=== PATIENT | female | born 1990 | race Caucasian/White ===

== ENCOUNTER 2016-07-09 18:04 | Emergency (ER) | payer SELFPAY ==
--- NOTE | 2016-07-09 23:12 | DIAGNOSTIC IMAGING REPORT ---
PROCEDURE: XR ELBOW 3 OR 4 VIEWS - RIGHT INDICATION: PAIN IN JOINT TECHNIQUE: Four views of the right elbow. COMPARISON: None. FINDINGS: Normal mineralization. No fractures. Normal osseous alignment. No joint effusion. No suspicious soft-tissue calcification or radiodense foreign bodies. The soft tissue density accentuated over the proximal forearm. No soft tissue gas. IMPRESSION: 1. Intact right elbow. 2. No evidence of radiodense foreign bodies or soft tissue gas.
--- NOTE | 2016-07-09 23:18 | DIAGNOSTIC IMAGING REPORT ---
PROCEDURE: US VENOUS - RIGHT EXT INDICATION: SWELLING TECHNIQUE: Duplex sonography of the deep venous system in the right upper extremity was performed. Compression and augmentation techniques were used. COMPARISON: None. FINDINGS: Irregular marginated, heterogeneous, partially encapsulated mass is present just below the skin surface at, and just above the crease of the antecubital fossa. It measures 3.7 x 3.1 x 3.8 cm and displaces the underlying muscle. Centrally there is fluid motion within this mass. It is immediately adjacent to the cephalic vein at the antecubital fossa. The cephalic vein for short segment proximal to this mass demonstrates partial compressibility and a nonocclusive filling defect. Cephalic vein in the proximal and mid upper arm is patent. Ulnar and radial arteries at the wrist are patent. More proximally, veins are not visible secondary to excessive soft tissue swelling. Internal jugular vein, subclavian, axillary, brachial, and basilic veins are normally compressible and demonstrate normal color Doppler flow and phasicity. IMPRESSION: 1. There is a short segment of partially occlusive clot in the cephalic vein at the, and just proximal to the antecubital fossa. 2. Findings of early abscess in the antecubital fossa adjacent to the partially occluded cephalic vein. 3. No evidence of thrombus in the deep veins of the upper arm. 4. Discussed with Edith Gallagher in the emergency room.
--- NOTE | 2016-07-09 23:32 | ED NURSING NOTES ---
Clinical Report - [facility] [place] [address] 07/09/2016 18:06 Patient: SUSAN LOPEZ TRIAGE Acuity: LEVEL 4. Chief Complaint: RIGHT UPPER EXTREMITY PAIN, SWELLING, REDNESS and NUMBNESS. Alert. No acute distress. --18:38 Salomón Devries R.N. Weight: 104.3 kg stated. Height/Length: 71 inches Per Patient. BMI: 32.1. --18:31 Salomón Devries R.N. Medications None. --18:35 Salomón Devries R.N. Allergies No Known Drug Allergy. --18:35 Salomón Devries R.N. History Arrived by private vehicle. Historian: patient. Accompanied by friend. This occurred at an unknown time. Provoking / relieving factors: relieved by rest and positioning. She has had swelling. She has had fever (unknown; Pt reports being "hot then cold"). Treatment DETAIL ASSEMBLER: Ice. PAST MEDICAL HX: No history of diabetes mellitus or hypertension. No history of infections. Tetanus status: up-to-date. Immunizations: up-to-date. Last normal menstrual period- Jun 28. Denies current . SOCIAL HX: Heavy tobacco smoker. History of drug use: heroin. (last use 7-8 days ago). No alcohol use. No infectious disease exposure. FALL RISK ASSESSMENT: Fall risk assessment completed. No fall risk identified. NUTRITIONAL RISK ASSESSMENT: The nutritional risk assessment revealed no deficiencies. FUNCTIONAL ASSESSMENT: Functional assessment: no impairments noted. LEARNING NEEDS ASSESSMENT: The learning needs assessment revealed no barriers. SKIN INTEGRITY ASSESSMENT: Skin integrity risk assessment completed. No skin integrity risk identified. --18:38 Salomón Devries R.N. PROBLEMS: Abscess. --18:36 Salomón Devries R.N. Interventions ID band on patient. --18:38 Salomón Devries R.N. PHYSICAL ASSESSMENT Ambulatory to room. GENERAL / NEURO / PSYCH: Oriented X 4. Alert. Appears in no acute distress. EXTREMITIES: Medium area of erythema to right forearm. Increased warmth to right forearm. Right forearm: tenderness, swelling and erythema of the proximal forearm. SKIN: Skin intact. Skin is warm. --18:39 Salomón Devries R.N. NURSING PROGRESS NOTES The plan of care for this patient has been created. Extremity elevated. Patient gowned. Two patient identifiers checked. Call light placed in reach. Bed placed in lowest position. Patient ready for evaluation- chart flagged and ED physician notified. --18:39 Salomón Devries R.N. ( Pt is in some distress r/t pain to her RUE. She is resting, R arm elevated on a pillow. Outlined erythema to R forearm with surgical marker.). --18:43 Salomón Devries R.N. ( Pt in room, updated her on reason for wait. Pt is stable, condition unchanged, VSS. Awaiting Physician Eval.). --19:24 Salomón Devries R.N. ( PA in to assess Pt. Discussed POC. Orders placed.). --19:49 Salomón Devries R.N. 19:55 07/09/2016 Percocet (Oxycodone-Acetaminophen) PO 5/325 mg Tablets 1 tab given. Allergies verified, confirmed 5 rights and sedative warning given to the patient. --19:55 Salomón Devries R.N. 19:52 07/09/16. BP: 99/61. HR: 85. RR: 16. O2 saturation: 95% on room air. Pain level now: 02/20. --19:55 Salomón Devries R.N. 20:55 07/09/2016 Percocet PO Response: no adverse reaction symptoms are the same. --20:55 Salomón Devries R.N. ( US at Pt's bedside completing ordered imaging.). --21:22 Salomón Devries R.N. 20:30 07/09/16. BP: 106/61. HR: 88. RR: 16. O2 saturation: 95% on room air. Pain level now: 02/20. --21:48 Salomón Devries R.N. Reassessment after medication administered. She is calm and has had no adverse reaction. Overall patient status is the same- she states feels the same. GENERAL / NEURO / PSYCH: The patient reports pain that is located in the right forearm is still present. The patient reports numbness. Alert. Appears in pain. RESPIRATORY: No respiratory distress. SKIN: Skin is warm. --21:54 Salomón Devries R.N. ( US completed, Pt resting in her room, still in pain, [facility].). --22:00 Salomón Devries R.N. 22:28 07/09/2016 Site #1 started via IV in the left hand with an 22g angiocath, with aseptic technique; two attempts. Blood drawn: rainbow set. Labeled in the presence of the patient. Saline lock flushed with 10 mL saline. --22:28 Salomón Devries R.N. <<STRICKEN ENTRY-- 22:29 07/09/2016 Started 2 gm of Vancomycin IVPB in bag #1 200 mL; at 200 mL/hr via site #1 via IV pump. Allergies verified and confirmed 5 rights. IV patency established. IV site checked: no pain, redness, or swelling. IV flushed thoroughly pre- and post-medication administration. --22:29 Salomón Devries R.N. --END STRIKE>> Change to Details. PA ordered 2 G Vanco but changed it to 1G Vanco. Pt received 1G/200 MLS of Vanco IV. --23:33 Salomón Devries R.N. 22:43 Portable X-ray complete. --22:43 McQuoid, Ondina, ER Tech1 Checked patient name and birthdate: patient confirmed. Blood samples drawn from the left antecubital space with 23g butterfly by nurse per protocol ; labeled in presence of the patient and sent to lab: rainbow set. --22:47 Salomón Devries R.N. I & D: Incision and Drainage of abscess performed by PA. Assisted by one nurse. The abscess is located on the right forearm. Preparation: Incision and Drainage tray set up with 2% lidocaine. Procedure; a moderate amount of pus was drained. Cavity was packed with gauze. Sample obtained for cultures. A dressing was applied. Post-procedure: she was stable, no complications, bleeding controlled and dressing intact. Estimated blood loss: < 5 mls. Total time of assist / procedure: 15 minutes. ( Pt tolerated well. No complications. Dressing C/D/I. CMS intact.). --23:18 Salomón Devries R.N. 22:29 07/09/2016 Started 1 gm of Vancomycin IVPB in bag #1 200 mL; at 200 mL/hr via site #1 via IV pump. Allergies verified and confirmed 5 rights. IV patency established. IV site checked: no pain, redness, or swelling. IV flushed thoroughly pre- and post-medication administration. --23:33 Salomón Devries R.N. 23:27 07/09/2016 Percocet (Oxycodone-Acetaminophen) PO 5/325 mg Tablets 1 tab given. Allergies verified, confirmed 5 rights and sedative warning given to the patient and patient's merchandise handler. --23:27 Salomón Devries R.N. 23:34 07/09/2016 Vancomycin IVPB Discontinued: bag #1 infused upon discharge. Total amount infused: 200 mL. IV patency established. IV site checked: no pain, redness, or swelling. IV flushed thoroughly. --23:34 Salomón Devries R.N. 23:50 07/09/16. BP: deferred. HR: deferred. RR: 16. O2 saturation: deferred. Temp: deferred. Pain level now: 07/21. --23:55 Annabelle Carrion R.N. DISPOSITION / DISCHARGE 23:30 07/09/16. BP: 97/65. HR: 86. RR: 16. O2 saturation: 96% on room air. Temp: 98 F. Pain level now: 02/20. --23:32 Salomón Devries R.N. 23:53 07/09/2016 Site #1 removed upon discharge. Manual pressure and bandaid applied. --23:53 Annabelle Carrion R.N. Departure time: 2253 PM. Condition at departure: improved and stable. The goals identified in the patient's plan of care were met. No learning barriers present. Discharge instructions provided and reviewed with the patient. Reviewed medication(s) side effects, precautions, dosing and course information. Prescription(s) given to the patient. Patient verbalized understanding. Written instructions provided in Dominican. ( Pt understands the importance of returning tomorrow for wound change.). The patient was discharged by the physician assistant activities director. She was discharged home and accompanied by family. She left the Emergency Department ambulatory and via private vehicle. Family member driving. FALL RISK ASSESSMENT: Fall risk assessment completed. No fall risk identified. --23:57 Annabelle Carrion R.N. Locked/Released at 07/09/2016 23:57 by Annabelle Carrion R.N.
--- NOTE | 2016-07-09 23:32 | ED CLINICAL REPORT ---
Clinical Report - Physicians/Mid Levels [facility] [address] [place] [address] 07/09/2016 18:06 Patient: SUSAN DIAMOND Time Seen: 19:20; initial patient contact. Arrived- By private vehicle. Historian- patient. HISTORY OF PRESENT ILLNESS Chief Complaint: (abscess right antecubital region from heroin injection). This started 3 days ago; pt states she last injected 7-8 days ago, and 3 days ago began having pain and swelling and redness in her right elbow/forearm, with tightness to the forearm. no drugs used since. no fever, chills. It is described as severely painful. It has been located on the right elbow and forearm. A cause has been identified. Similar symptoms previously: Several times (years ago). Recent medical care: Not recently seen/assessed. REVIEW OF SYSTEMS No fever or enlarged lymph nodes. She has had moderate joint pain with erythema, involving the right elbow. All systems otherwise negative, except as recorded above. PAST HISTORY See nurses notes. Tetanus immunization status is up-to-date. Problems: Abscess. Medications: None. Allergies: No Known Drug Allergy. SOCIAL HISTORY Smoker- current status unknown (cigarette). History of occasional drug use: heroin. 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 Recently used drugs days ago. FAMILY HISTORY Negative. ADDITIONAL NOTES The nursing notes have been reviewed with agreement regarding the chief complaint, HPI, ROS, PMH and patient medications and allergies. PHYSICAL EXAM Vital Signs: 07/09/2016 20:30 BP: 106/61. HR: 88. RR: 16. O2 saturation: 95%. Pain level now: 02/20. 07/09/2016 19:52 BP: 99/61. HR: 85. RR: 16. O2 saturation: 95%. Pain level now: 02/20. Have been reviewed as normal. Appearance: Alert. Oriented X3. No acute distress. Anxious. Eyes: Pupils equal, round and reactive to light. ENT: Ears normal. CVS: Normal heart rate and rhythm. Heart sounds normal. Respiratory: No respiratory distress. Breath sounds normal. Skin: Skin warm and dry. Normal skin turgor. Medium area of erythema with tenderness, warmth and swelling to right forearm. Single small tender indurated area with fluctuance to right elbow. Large area of cellulitis with tenderness, erythema and warmth to right forearm. Single medium abscess with fluctuance and cellulitis to right elbow and right forearm (2 cm). No drainage. Neuro: Oriented X 3. LABS, X-RAYS, AND EKG X-Rays: X-rays are normal except as noted. Right elbow negative. The X-rays were independently viewed by me and interpreted by the radiologist. Duplex Ultrasound: Right upper extremity study. Abnormal results. Name: Susan Diamond : 1990 MR#: [id number] Ordering Provider: BHANU KAY Exam(s): US VENOUS - RIGHT EXT Date of Exam: 07/09/2016 __ PROCEDURE: US VENOUS - RIGHT EXT INDICATION: SWELLING TECHNIQUE: Duplex sonography of the deep venous system in the right upper extremity was performed. Compression and augmentation techniques were used. COMPARISON: None. FINDINGS: Irregular marginated, heterogeneous, partially encapsulated mass is present just below the skin surface at, and just above the crease of the antecubital fossa. It measures 3.7 x 3.1 x 3.8 cm and displaces the underlying muscle. Centrally there is fluid motion within this mass. It is immediately adjacent to the cephalic vein at the antecubital fossa. The cephalic vein for short segment proximal to this mass demonstrates partial compressibility and a nonocclusive filling defect. Cephalic vein in the proximal and mid upper arm is patent. Ulnar and radial arteries at the wrist are patent. More proximally, veins are not visible secondary to excessive soft tissue swelling. Internal jugular vein, subclavian, axillary, brachial, and basilic veins are normally compressible and demonstrate normal color Doppler flow and phasicity. IMPRESSION: 1. There is a short segment of partially occlusive clot in the cephalic vein at the, and just proximal to the antecubital fossa. 2. Findings of early abscess in the antecubital fossa adjacent to the partially occluded cephalic vein. 3. No evidence of thrombus in the deep veins of the upper arm. 4. Discussed with Bhanu Kay in the emergency room. Electronically Final signed by:Daly Chapa MD 07/09/2016 11:18:58 PM. The exam was performed by a patient service technician pst. The study was independently viewed by me, interpreted by the radiologist and discussed with the radiologist. Laboratory Tests: CBC w Diff: (CRESENCIO: 07/09/2016 22:41) ( MsgRcvd 07/09/2016 23:14) IP Test Result Flag Units (Reference) WHITE BLOOD COUNT 14.6 H K/uL (4.5-11.5) RED BLOOD COUNT 3.80 L M/uL (4.00-5.20) HEMOGLOBIN 11.0 L gm/dL (12.0-16.0) HEMATOCRIT 36.1 % (36.0-46.0) MEAN CELL VOLUME 95 fL (80-100) MEAN CORPUSCULAR HGB 29 pg (26-34) MEAN CORPUSCULAR HGB CONC 31 g/dL (31-37) RED CELL DISTRIBUTION WIDTH 14.6 % (11.6-14.8) . PROGRESS AND PROCEDURES Incision & Drainage of Abscess: Time: 2305. Time-out completed immediately before the procedure. See nurses note. Verified: identity of patient; procedure; side and site of procedure (site marked); position of patient; agreement on the procedure to be done; availability of diagnostic and imaging studies; the need to administer antibiotics or fluids for irrigation; consent was reviewed. The abscess is located in the right elbow and forearm. The risks of the procedure, benefits and alternatives were explained. Local anesthesia provided using 2% lidocaine with bicarb. Ultrasound utilized to confirm presence and determine location of abscess. The abscess was incised with a #11 surgical blade. A moderate amount of pus was drained. Cavity was irrigated with saline and packed with gauze. Sample obtained for cultures. A dressing was applied. Estimated blood loss: 1 mL. Course of Care: The plan of care for this patient has been created. Extremity elevated. Patient gowned. Two patient identifiers checked. Call light placed in reach. Bed placed in lowest position. Patient ready for evaluation- chart flagged and ED physician notified. --18:39 Salomón Devries R.N. ( Pt is in some distress r/t pain to her RUE. She is resting, R arm elevated on a pillow. Outlined erythema to R forearm with surgical marker.). --18:43 Salomón Devries R.N. ( Pt in room, updated her on reason for wait. Pt is stable, condition unchanged, VSS. Awaiting Physician May.). --19:24 Salomón Devries R.N. ( PA in to assess Pt. Discussed POC. Orders placed.). --19:49 Salomón Devries R.N. 19:55 07/09/2016 Percocet (Oxycodone-Acetaminophen) PO 5/325 mg Tablets 1 tab given. Allergies verified, confirmed 5 rights and sedative warning given to the patient. --19:55 Salomón Devries R.N. 19:52 07/09/16. BP: 99/61. HR: 85. RR: 16. O2 saturation: 95% on room air. Pain level now: 02/20. --19:55 Salomón Devries R.N. 20:55 07/09/2016 Percocet PO Response: no adverse reaction symptoms are the same. --20:55 Salomón Devries R.N. ( US at Pt's bedside completing ordered imaging.). --21:22 Salomón Devries R.N. 20:30 07/09/16. BP: 106/61. HR: 88. RR: 16. O2 saturation: 95% on room air. Pain level now: 02/20. --21:48 Salomón Devries R.N. Reassessment after medication administered. She is calm and has had no adverse reaction. Overall patient status is the same- she states feels the same. GENERAL / NEURO / PSYCH: The patient reports pain that is located in the right forearm is still present. The patient reports numbness. Alert. Appears in pain. RESPIRATORY: No respiratory distress. SKIN: Skin is warm. --21:54 Salomón Devries R.N. ( US completed, Pt resting in her room, still in pain, [facility].). --22:00 Salomón Devries R.N. 22:28 07/09/2016 Site #1 started via IV in the left hand with an 22g angiocath, with aseptic technique; two attempts. Blood drawn: rainbow set. Labeled in the presence of the patient. Saline lock flushed with 10 mL saline. --22:28 Salomón Devries R.N. 22:29 07/09/2016 Started 2 gm of Vancomycin IVPB in bag #1 200 mL; at 200 mL/hr via site #1 via IV pump. Allergies verified and confirmed 5 rights. IV patency established. IV site checked: no pain, redness, or swelling. IV flushed thoroughly pre- and post-medication administration. --22:29 Salomón Devries R.N. 22:43 Portable X-ray complete. --22:43 McQuoid, Ondina, ER Tech1 Checked patient name and birthdate: patient confirmed. Blood samples drawn from the left antecubital space with 23g butterfly by nurse per protocol ; labeled in presence of the patient and sent to lab: rainbow set. --22:47 Salomón Devries R.N. I & D: Incision and Drainage of abscess performed by PA. Assisted by one nurse. The abscess is located on the right forearm. Preparation: Incision and Drainage tray set up with 2% lidocaine. Procedure; a moderate amount of pus was drained. Cavity was packed with gauze. Sample obtained for cultures. A dressing was applied. Post-procedure: she was stable, no complications, bleeding controlled and dressing intact. Estimated blood loss: < 5 mls. Total time of assist / procedure: 15 minutes. ( Pt tolerated well. No complications. Dressing C/D/I. CMS intact.). --23:18 Salomón Devries R.N. Patient is stable. Physical exam findings are improved. Symptoms much better. CLINICAL IMPRESSION Single deep abscess to the right upper extremity with incision and drainage. Substance abuse problems: abuse of opiates. venous thrombosis of the cephalic vein right upper extremity. INSTRUCTIONS Apply dry heat for 15 minutes five times a day for three days until better. Don't use while asleep and don't use high setting on heating pad. Rest. Do not work for two days until better. No dietary restrictions. Do not smoke. No alcohol. (you need to be seen in the ER tomorrow for wound recheck and have the packing removed.). Warnings: CONTROLLED SUBSTANCE WARNINGS. GENERAL WARNINGS: Return or contact your physician immediately if your condition worsens or changes unexpectedly, if not improving as expected, or if other problems arise. Prescription Medications: Bactrim DS 800 mg / 160 mg: take 1 tablet orally every 12 hours for 10 days. No refill. Substitution is permissible. Clindamycin 300 mg: take 1 capsule orally every 8 hours for 10 days. No refill. Oxycodone/APAP 5 mg/325 mg: take 1 tablet orally every 6 hours as needed for pain. Dispense five (5). No refill. Follow-up: Call the emergency department for results of cultures. Return to the emergency department tomorrow for wound check and packing removal. Understanding of the discharge instructions verbalized by patient. (Electronically signed by Bhanu Kay PA-C 07/10/2016 0:34)
--- NOTE | 2016-07-09 23:32 | ED ORDER SUMMARY ---
..... Patient: SUSAN LOPEZ OrderSheet [facility] VisitID: [id number] [address] [place] [address] 26y, F Registration Date/Time: 07/09/2016 ORDER SHEET Weight: 104.3 kg (stated) Allergies: No Known Drug Allergy GENERAL ORDERS: US Venous Right (right upper extremity) Urgent (20:50 07/09/2016 ABlanchette PA-C) (Ack 20:51 Melody) (21:11 MCook R.N.) Elbow 3 or 4V Right (r/o nec fasciitis, abscess with superficial clot) Urgent (22:07 07/09/2016 ABlanchette PA-C) (Ack 22:10 Melody) (22:43 AMcQuoid ER Tech1) CBC w Diff Urgent (22:07 07/09/2016 ABlanchette PA-C) (Ack 22:10 Melody) (22:44 MCook R.N.) MEDICATION ORDERS: Percocet PO 5/325 mg (NOW) (19:54 07/09/2016 MCook R.N. verbal order read back to ABlanchette PA-C) (19:55 MCook R.N.) IV FLUIDS: Vancomycin IV 1.5 gm/500 mL (NOW) (22:06 07/09/2016 ABlanchette PA-C) (Cancelled: Duplicate Order22:13 ABlanchette PA-C) IV Saline Lock (22:07 07/09/2016 ABlanchette PA-C) (22:28 MCook R.N.) Vancomycin IV 2 gm/500 mL (NOW) (22:13 07/09/2016 ABlanchette PA-C) (22:29 MCook R.N.) ORDER SHEET NOTES: [Electronically signed by Annabelle Carrion R.N. (23:57 07/09/2016)] [Electronically signed by Edith Gallagher PA-C (00:34 07/10/2016)] [Electronically locked/signed by Annabelle Carrion R.N. (23:57 07/09/2016)]
--- NOTE | 2016-07-09 23:32 | ED NURSING NOTES ---
Clinical Report - Nurses [facility] [place] [address] 07/09/2016 18:06 Patient: SUSAN LOPEZ TRIAGE Acuity: LEVEL 4. Chief Complaint: RIGHT UPPER EXTREMITY PAIN, SWELLING, REDNESS and NUMBNESS. Alert. No acute distress. --18:38 Salomón Devries R.N. Weight: 104.3 kg stated. Height/Length: 71 inches Per Patient. BMI: 32.1. --18:31 Salomón Devries R.N. Medications None. --18:35 Salomón Devries R.N. Allergies No Known Drug Allergy. --18:35 Salomón Devries R.N. History Arrived by private vehicle. Historian: patient. Accompanied by friend. This occurred at an unknown time. Provoking / relieving factors: relieved by rest and positioning. She has had swelling. She has had fever (unknown; Pt reports being "hot then cold"). Treatment FARM HAND: Ice. PAST MEDICAL HX: No history of diabetes mellitus or hypertension. No history of infections. Tetanus status: up-to-date. Immunizations: up-to-date. Last normal menstrual period- Jun 28. Denies current . SOCIAL HX: Heavy tobacco smoker. History of drug use: heroin. (last use 7-8 days ago). No alcohol use. No infectious disease exposure. FALL RISK ASSESSMENT: Fall risk assessment completed. No fall risk identified. NUTRITIONAL RISK ASSESSMENT: The nutritional risk assessment revealed no deficiencies. FUNCTIONAL ASSESSMENT: Functional assessment: no impairments noted. LEARNING NEEDS ASSESSMENT: The learning needs assessment revealed no barriers. SKIN INTEGRITY ASSESSMENT: Skin integrity risk assessment completed. No skin integrity risk identified. --18:38 Salomón Devries R.N. PROBLEMS: Abscess. --18:36 Saolmón Devries R.N. Interventions ID band on patient. --18:38 Salomón Devries R.N. PHYSICAL ASSESSMENT Ambulatory to room. GENERAL / NEURO / PSYCH: Oriented X 4. Alert. Appears in no acute distress. EXTREMITIES: Medium area of erythema to right forearm. Increased warmth to right forearm. Right forearm: tenderness, swelling and erythema of the proximal forearm. SKIN: Skin intact. Skin is warm. --18:39 Salomón Devries R.N. NURSING PROGRESS NOTES The plan of care for this patient has been created. Extremity elevated. Patient gowned. Two patient identifiers checked. Call light placed in reach. Bed placed in lowest position. Patient ready for evaluation- chart flagged and ED physician notified. --18:39 Salomón Dervies R.N. ( Pt is in some distress r/t pain to her RUE. She is resting, R arm elevated on a pillow. Outlined erythema to R forearm with surgical marker.). --18:43 Salomón Devries R.N. ( Pt in room, updated her on reason for wait. Pt is stable, condition unchanged, VSS. Awaiting Physician Eval.). --19:24 Salomón Devries R.N. ( PA in to assess Pt. Discussed POC. Orders placed.). --19:49 Salomón Devries R.N. 19:55 07/09/2016 Percocet (Oxycodone-Acetaminophen) PO 5/325 mg Tablets 1 tab given. Allergies verified, confirmed 5 rights and sedative warning given to the patient. --19:55 Salomón Devries R.N. 19:52 07/09/16. BP: 99/61. HR: 85. RR: 16. O2 saturation: 95% on room air. Pain level now: 02/20. --19:55 Salomón Devries R.N. 20:55 07/09/2016 Percocet PO Response: no adverse reaction symptoms are the same. --20:55 Salomón Devries R.N. ( US at Pt's bedside completing ordered imaging.). --21:22 Salomón Devries R.N. 20:30 07/09/16. BP: 106/61. HR: 88. RR: 16. O2 saturation: 95% on room air. Pain level now: 02/20. --21:48 Salomón Devries R.N. Reassessment after medication administered. She is calm and has had no adverse reaction. Overall patient status is the same- she states feels the same. GENERAL / NEURO / PSYCH: The patient reports pain that is located in the right forearm is still present. The patient reports numbness. Alert. Appears in pain. RESPIRATORY: No respiratory distress. SKIN: Skin is warm. --21:54 Salomón Devries R.N. ( US completed, Pt resting in her room, still in pain, [facility].). --22:00 Salomón Devries R.N. 22:28 07/09/2016 Site #1 started via IV in the left hand with an 22g angiocath, with aseptic technique; two attempts. Blood drawn: rainbow set. Labeled in the presence of the patient. Saline lock flushed with 10 mL saline. --22:28 Salomón Devries R.N. <<STRICKEN ENTRY-- 22:29 07/09/2016 Started 2 gm of Vancomycin IVPB in bag #1 200 mL; at 200 mL/hr via site #1 via IV pump. Allergies verified and confirmed 5 rights. IV patency established. IV site checked: no pain, redness, or swelling. IV flushed thoroughly pre- and post-medication administration. --22:29 Salomón Devries R.N. --END STRIKE>> Change to Details. PA ordered 2 G Vanco but changed it to 1G Vanco. Pt received 1G/200 MLS of Vanco IV. --23:33 Salomón Devries R.N. 22:43 Portable X-ray complete. --22:43 McQuoid, [place], ER Tech1 Checked patient name and birthdate: patient confirmed. Blood samples drawn from the left antecubital space with 23g butterfly by nurse per protocol ; labeled in presence of the patient and sent to lab: rainbow set. --22:47 Salomón Devries R.N. I & D: Incision and Drainage of abscess performed by PA. Assisted by one nurse. The abscess is located on the right forearm. Preparation: Incision and Drainage tray set up with 2% lidocaine. Procedure; a moderate amount of pus was drained. Cavity was packed with gauze. Sample obtained for cultures. A dressing was applied. Post-procedure: she was stable, no complications, bleeding controlled and dressing intact. Estimated blood loss: < 5 mls. Total time of assist / procedure: 15 minutes. ( Pt tolerated well. No complications. Dressing C/D/I. CMS intact.). --23:18 Salomón Devries R.N. 22:29 07/09/2016 Started 1 gm of Vancomycin IVPB in bag #1 200 mL; at 200 mL/hr via site #1 via IV pump. Allergies verified and confirmed 5 rights. IV patency established. IV site checked: no pain, redness, or swelling. IV flushed thoroughly pre- and post-medication administration. --23:33 Salomón Devries R.N. 23:27 07/09/2016 Percocet (Oxycodone-Acetaminophen) PO 5/325 mg Tablets 1 tab given. 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 --23:27 Salomón Devries R.N. 23:34 07/09/2016 Vancomycin IVPB Discontinued: bag #1 infused upon discharge. Total amount infused: 200 mL. IV patency established. IV site checked: no pain, redness, or swelling. IV flushed thoroughly. --23:34 Salomón Devries R.N. 23:50 07/09/16. BP: deferred. HR: deferred. RR: 16. O2 saturation: deferred. Temp: deferred. Pain level now: 07/21. --23:55 Annabelle Carrion R.N. DISPOSITION / DISCHARGE 23:30 07/09/16. BP: 97/65. HR: 86. RR: 16. O2 saturation: 96% on room air. Temp: 98 F. Pain level now: 02/20. --23:32 Salomón Devries R.N. 23:53 07/09/2016 Site #1 removed upon discharge. Manual pressure and bandaid applied. --23:53 Annabelle Carrion R.N. Departure time: 2253 PM. Condition at departure: improved and stable. The goals identified in the patient's plan of care were met. No learning barriers present. Discharge instructions provided and reviewed with the patient. Reviewed medication(s) side effects, precautions, dosing and course information. Prescription(s) given to the patient. Patient verbalized understanding. Written instructions provided in Icelandic. ( Pt understands the importance of returning tomorrow for wound change.). The patient was discharged by the physician assistant director of admissions. She was discharged home and accompanied by family. She left the Emergency Department ambulatory and via private vehicle. Family member driving. FALL RISK ASSESSMENT: Fall risk assessment completed. No fall risk identified. --23:57 Annabelle Carrion R.N. Locked/Released at 07/09/2016 23:57 by Annabelle Carrion R.N.
--- NOTE | 2016-07-09 23:32 | ED ORDER SUMMARY ---
..... Patient: SUSAN LOPEZ OrderSheet [facility] VisitID: [id number] [address] [place] [address] 26y, F Registration Date/Time: 07/09/2016 ORDER SHEET Weight: 104.3 kg (stated) Allergies: No Known Drug Allergy GENERAL ORDERS: US Venous Right (right upper extremity) Urgent (20:50 07/09/2016 ABlanchette PA-C) (Ack 20:51 Melody) (21:11 MCook R.N.) Elbow 3 or 4V Right (r/o nec fasciitis, abscess with superficial clot) Urgent (22:07 07/09/2016 ABlanchette PA-C) (Ack 22:10 Melody) (22:43 AMcQuoid ER Tech1) CBC w Diff Urgent (22:07 07/09/2016 ABlanchette PA-C) (Ack 22:10 Melody) (22:44 MCook R.N.) MEDICATION ORDERS: Percocet PO 5/325 mg (NOW) (19:54 07/09/2016 MCook R.N. verbal order read back to ABlanchette PA-C) (19:55 MCook R.N.) IV FLUIDS: Vancomycin IV 1.5 gm/500 mL (NOW) (22:06 07/09/2016 ABlanchette PA-C) (Cancelled: Duplicate Order22:13 ABlanchette PA-C) IV Saline Lock (22:07 07/09/2016 ABlanchette PA-C) (22:28 MCook R.N.) Vancomycin IV 2 gm/500 mL (NOW) (22:13 07/09/2016 ABlanchette PA-C) (22:29 MCook R.N.) ORDER SHEET NOTES: [Electronically signed by Annabelle Carrion R.N. (23:57 07/09/2016)] [Electronically signed by Edith Gallagher PA-C (00:34 07/10/2016)] [Electronically locked/signed by Annabelle Carrion R.N. (23:57 07/09/2016)]
--- NOTE | 2016-07-10 00:35 | ED MED RECONCILIATION SUMMARY ---
Patient: SUSAN LOPEZ Medication Reconciliation Report [facility] VisitID: [id number] [address] [place] [address] 26y, F Registration Date/Time: 07/09/2016 Weight: 104.3 kg Height/Length: 71 in. BMI: 32.1 ALLERGIES: No Known Drug Allergy The patient's Home Medications are listed below: NONE. The source(s) of the original Home Medication information: Not obtained. The following Medications were given to the patient in the Emergency Department: Percocet [PO] PO 1 tab, administered: 07/09/2016 7:55:00 PM Vancomycin [IVPB] IVPB bolus 0, then 1 gm 200 mL/hr, administered: 07/09/2016 10:29:00 PM Percocet [PO] PO 1 tab, administered: 07/09/2016 11:27:00 PM The following Medications were prescribed to the patient: Bactrim DS 800 mg / 160 mg: take 1 tablet orally every 12 hours for 10 days. No refill. Substitution is permissible. -- Edith Gallagher PA-C Clindamycin 300 mg: take 1 capsule orally every 8 hours for 10 days. No refill. -- Edith Gallagher PA-C Oxycodone/APAP 5 mg/325 mg: take 1 tablet orally every 6 hours as needed for pain. Dispense five (5). No refill. -- Edith Gallagher PA-C
--- NOTE | 2016-07-10 00:35 | ED DISCHARGE INSTRUCTIONS ---
Patient: SUSAN LOPEZ General Instructions [facility] VisitID: [id number] [place] [address] 26y, F Registration Date/Time: 07/09/2016 Single deep abscess to the right upper extremity with incision and drainage. Substance abuse problems: abuse of opiates. venous thrombosis of the cephalic vein right upper extremity. INSTRUCTIONS Apply dry heat for 15 minutes five times a day for three days until better. Don't use while asleep and don't use high setting on heating pad. Rest. Do not work for two days until better. No dietary restrictions. Do not smoke. No alcohol. (you need to be seen in the ER tomorrow for wound recheck and have the packing removed.). Warnings: CONTROLLED SUBSTANCE WARNINGS. GENERAL WARNINGS: Return or contact your physician immediately if your condition worsens or changes unexpectedly, if not improving as expected, or if other problems arise. Prescription Medications: Bactrim DS 800 mg / 160 mg: take 1 tablet orally every 12 hours for 10 days. No refill. Substitution is permissible. Clindamycin 300 mg: take 1 capsule orally every 8 hours for 10 days. No refill. Oxycodone/APAP 5 mg/325 mg: take 1 tablet orally every 6 hours as needed for pain. Dispense five (5). No refill. Follow-up: Call the emergency department for results of cultures. Return to the emergency department tomorrow for wound check and packing removal. Understanding of the discharge instructions verbalized by patient. ADDITIONAL INFORMATION Abscess [Incision & Drainage] An abscess (sometimes called a boil) occurs when bacteria get trapped under the skin and begin to grow. Pus forms inside the abscess as the body responds to the bacteria. An abscess can occur with an insect bite, ingrown hair, blocked oil gland, pimple, cyst, or puncture wound. Treatment of your abscess has required an incision to drain the pus. If the abscess pocket was large, a gauze packing may have been inserted. This will need to be removed and possibly replaced on your next visit. Antibiotics are not required in the treatment of a simple abscess, unless the infection is spreading into the skin around the wound (known as cellulitis). Healing of the wound will take about one to two weeks depending on the size of the abscess. Healthy tissue will grow from the bottom and sides of the opening until it seals over. Home Care: The wound may drain for the first two days. Cover the wound with a clean dry dressing. If the dressing becomes soaked with blood or pus, change it. If a gauze packing was placed inside the abscess cavity, you may be advised to remove it yourself. You may do this in the shower. Once the packing is removed, you should wash the area in the shower or bath 3 to 4 times a day, until the skin opening has closed. If you were prescribed antibiotics, take them as directed until they are all gone. You may use acetaminophen (Tylenol) or ibuprofen (Motrin, Advil) to control pain, unless another pain medicine was prescribed. [ NOTE: If you have liver disease or ever had a stomach ulcer, talk with your doctor before using these medicines.] Follow Up with your doctor as advised by our staff. If a gauze packing was inserted in your wound, it should be removed in 1-2 days. Check your wound every day for the signs of worsening infection listed below. Get Prompt Medical Attention if any of the following occur: Increasing redness or swelling Red streaks in the skin leading away from the wound Increasing local pain or swelling Continued pus draining from the wound two days after treatment Fever of 100.4F (38C) or higher, or as directed by your healthcare provider You have been given the following additional information: Abscess, Incision And Drainage Rest. Do not work for two days until better. (Electronically signed by Edith Gallagher PA-C 07/10/2016 0:34)
--- NOTE | 2016-07-10 00:35 | ED MAR SUMMARY ---
..... Medication Administration Record [facility] [address] [place] [address] Patient: SUSAN LOPEZ Visit ID: [id number] 26y, F Weight: 104.3 kg Height/Length: 71 in BMI: 32.1 ALLERGIES: No Known Drug Allergy Given 19:55 07/09/2016 Salomón Devries R.N. Medication Administered: PERCOCET [PO] (OXYCODONE-ACETAMINOPHEN), Dose: 1 tab 5/325 mg Tablets PO. Medication Ordered: Percocet PO 5/325 mg (NOW). Start 22:29 07/09/2016 Salomón Devries R.N., Stop 23:34 07/09/2016 Salomnó Devries R.N. Medication Administered: VANCOMYCIN [IVPB], Dose: 1 gm IVPB, Rate: 200 mL/hr, Dispensed: 200 mL bag, Site: #1 left hand. Medication Ordered: Vancomycin IV 2 gm/500 mL (NOW). Given 23:27 07/09/2016 Salomón Devries R.N. Medication Administered: PERCOCET [PO] (OXYCODONE-ACETAMINOPHEN), Dose: 1 tab 5/325 mg Tablets PO. Medication Ordered: Percocet PO 5/325 mg (NOW).
--- NOTE | 2016-07-10 00:35 | ED MAR SUMMARY ---
..... Medication Administration Record [facility] [address] [place] [address] Patient: SUSAN LOPEZ Visit ID: [id number] 26y, F Weight: 104.3 kg Height/Length: 71 in BMI: 32.1 ALLERGIES: No Known Drug Allergy Given 19:55 07/09/2016 Salomón Devries R.N. Medication Administered: PERCOCET [PO] (OXYCODONE-ACETAMINOPHEN), Dose: 1 tab 5/325 mg Tablets PO. Medication Ordered: Percocet PO 5/325 mg (NOW). Start 22:29 07/09/2016 Salomón Devries R.N., Stop 23:34 07/09/2016 Salomón Devries R.N. Medication Administered: VANCOMYCIN [IVPB], Dose: 1 gm IVPB, Rate: 200 mL/hr, Dispensed: 200 mL bag, Site: #1 left hand. Medication Ordered: Vancomycin IV 2 gm/500 mL (NOW). Given 23:27 07/09/2016 Salomón Devries R.N. Medication Administered: PERCOCET [PO] (OXYCODONE-ACETAMINOPHEN), Dose: 1 tab 5/325 mg Tablets PO. Medication Ordered: Percocet PO 5/325 mg (NOW).
--- NOTE | 2016-07-10 00:35 | ED MED RECONCILIATION SUMMARY ---
Patient: SUSAN LOPEZ Medication Reconciliation Report [facility] VisitID: [id number] [address] [place] [address] 26y, F Registration Date/Time: 07/09/2016 Weight: 104.3 kg Height/Length: 71 in. BMI: 32.1 ALLERGIES: No Known Drug Allergy The patient's Home Medications are listed below: NONE. The source(s) of the original Home Medication information: Not obtained. The following Medications were given to the patient in the Emergency Department: Percocet [PO] PO 1 tab, administered: 07/09/2016 7:55:00 PM Vancomycin [IVPB] IVPB bolus 0, then 1 gm 200 mL/hr, administered: 07/09/2016 10:29:00 PM Percocet [PO] PO 1 tab, administered: 07/09/2016 11:27:00 PM The following Medications were prescribed to the patient: Bactrim DS 800 mg / 160 mg: take 1 tablet orally every 12 hours for 10 days. No refill. Substitution is permissible. -- Edith Gallagher PA-C Clindamycin 300 mg: take 1 capsule orally every 8 hours for 10 days. No refill. -- Edith Gallagher PA-C Oxycodone/APAP 5 mg/325 mg: take 1 tablet orally every 6 hours as needed for pain. Dispense five (5). No refill. -- Edith Gallagher PA-C
== END 2016-07-09 23:02 | disposition home or self-care (01) ==
LOC: ED SRH 18:04
DX: L02.413 Cutaneous abscess of right upper limb (principal); F11.10 Opioid abuse, uncomplicated; I82.611 Acute embolism and thrombosis of superficial veins of right upper extremity

== ENCOUNTER → 2016-07-10 | Emergency (ER) | payer SELFPAY ==
--- NOTE | 2016-07-10 19:48 | ED NURSING NOTES ---
Clinical Report - Nurses [facility] [address] [place] [address] 07/10/2016 17:31 Patient: SUSAN LOPEZ TRIAGE Triage time 17:41. Acuity: LEVEL 5. Chief Complaint: abcess drain removal. 17:49 07/10/16. Alert. No acute distress. SEPSIS SCREEN: Sepsis Screen. Negative (no infection suspected/documented). --17:49 Juliana Al R.N. 17:41 07/10/16. HR: 85. RR: 16. O2 saturation: 99%. Temp: 98.4 F. Pain level now: 02/20. --17:49 Juliana Al R.N. 17:41 late entry -. --17:57 Juliana Al R.N. 17:55 07/10/16. BP: 102/64. --17:57 Juliana Al R.N. 17:58 07/10/16. --17:58 Juliana Al R.N. Weight: 99.7 kg stated. Height/Length: 71 inches Per Patient. BMI: 30.7. --17:53 Juliana Al R.N. Medications Bactrim Oral. --17:50 Juliana Al R.N. Clindamycin HCl Oral. --17:50 Juliana Al R.N. OxyCODONE HCl Oral. --17:51 Juliana Al R.N. The following entry was struck by Juliana Al R.N., 17:50 (07/10/16) Reason - wrong value. <<STRICKEN ENTRY-- None. --17:45 Juliana Al R.N. --END STRIKE>>. Allergies No Known Drug Allergy. --17:45 Juliana Al R.N. History Historian: patient. It is described as painful. ( pt reports she had an abscess drained yesterday and was told to return today for drain removal.). 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 PAST MEDICAL HX: Immunizations: up-to-date. Last normal menstrual period- Jun 28 2016. Denies current . SOCIAL HX: Heavy tobacco smoker- 1 pack per day. History of drug use. (pt reports past heroin use (8 days ago)). No alcohol use. ABUSE ASSESSMENT: No report of abuse. FALL RISK ASSESSMENT: Fall risk assessment completed. No fall risk identified. NUTRITIONAL RISK ASSESSMENT: The nutritional risk assessment revealed no deficiencies. FUNCTIONAL ASSESSMENT: Functional assessment: no impairments noted. LEARNING NEEDS ASSESSMENT: The learning needs assessment revealed no barriers. SKIN INTEGRITY ASSESSMENT: Skin integrity risk assessment completed. No skin integrity risk identified. --17:49 Juliana Al R.N. Location - right forearm. --17:58 Juliana Al R.N. PROBLEMS: Lifestyle / Substance Problems. Abscess. --17:46 Juliana Al R.N. ADDITIONAL SURGERIES: Tonsillectomy. --17:46 Juliana Al R.N. Interventions ID band on patient. To treatment room. --17:49 Juliana Al R.N. PHYSICAL ASSESSMENT 17:52 07/10/16. SKIN: Skin is warm and dry. Bloody drainage (bloody drainage from yesterday). --17:52 Juliana Al R.N. NURSING PROGRESS NOTES 17:53 07/10/16. Two patient identifiers checked. Call light placed in reach. Bed placed in lowest position. Brakes of bed on. Patient ready for evaluation- chart flagged and notification provided. --17:53 Juliana Al R.N. 19:02 07/10/16. ( I and D set up). --19:02 Andrew Jiang R.N. 19:06 07/10/16. Care transferred and report received (from ARIEL Andrews). --19:06 Yesica Burciaga R.N. 19:25 07/10/16. I & D: Incision and Drainage of abscess performed by ED physician. Assisted by one nurse. The abscess is located on the (right AC fossa). Preparation: Incision and Drainage tray set up with 2% lidocaine. Procedure: skin cleansed with Betadine; a large amount of pus was drained. Cavity was irrigated with saline and packed with gauze. A dressing was applied. Post-procedure: she was stable, no complications, bleeding controlled and dressing intact. --19:49 Yesica Burciaga R.N. DISPOSITION / DISCHARGE 20:05 07/10/16. Condition at departure: improved and stable. The goals identified in the patient's plan of care were met. No learning barriers present. Reviewed medication(s) (continue taking abx). Reviewed referrals (return to ED tomorrow evening for wound check). Patient verbalized understanding. Written instructions provided in Bahraini. The patient was discharged home and unaccompanied at time of discharge. She left the Emergency Department ambulatory and via private vehicle. Patient driving. FALL RISK ASSESSMENT: Fall risk assessment completed. No fall risk identified. --20:05 Yesica Burciaga R.N. 17:55 07/10/16. BP: 102/64. 17:41 07/10/16. HR: 85. RR: 16. O2 saturation: 99%. Temp: 98.4 F. Pain level now: 02/20. --20:05 Yesica Burciaga R.N. Departure time: 20:05 Jul 10 2016. --20:05 Yesica Buricaga R.N. Locked/Released at 07/10/2016 20:05 by Yesica Burciaga R.N.
--- NOTE | 2016-07-10 19:48 | ED CLINICAL REPORT ---
Clinical Report - Physicians/Mid Levels [facility] [address] [place] [address] 07/10/2016 17:31 Patient: SUSAN LOPEZ Time Seen: 17:40. Arrived- By private vehicle. Historian- patient. HISTORY OF PRESENT ILLNESS Treated in emergency department yesterday. Chief Complaint: WOUND and ABSCESS RECHECK. The patient has experienced pain and discharge since the procedure was performed. Previous emergency department treatment: Incision and Drainage of abscess and prescription antibiotic given. REVIEW OF SYSTEMS No chills, fever, sweats, calf pain or chest pain. No cough, difficulty breathing, pedal edema, palpitations or abdominal pain. No constipation, diarrhea, nausea, vomiting or urinary problems. All systems otherwise negative, except as recorded above. PAST HISTORY Problems: Lifestyle / Substance Problems. Abscess. Additional Surgeries: Tonsillectomy. Medications: OxyCODONE HCl Oral. Clindamycin HCl Oral. Bactrim Oral. Allergies: No Known Drug Allergy. SOCIAL HISTORY Current every day heavy tobacco smoker (cigarette)- 1 pack per day. 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 FAMILY HISTORY No significant family medical history. ADDITIONAL NOTES The nursing notes have been reviewed. PHYSICAL EXAM Vital Signs: 07/10/2016 17:41 HR: 85. RR: 16. O2 saturation: 99%. Temp: 98.4 F. Pain level now: 02/20. Have been reviewed. Appearance: Alert. Head: No swelling of head. Eyes: Pupils equal, round and reactive to light. ENT: Pharynx normal. Neck: Painless ROM. CVS: Heart sounds normal. Pulses normal. Respiratory: Breath sounds normal. Chest nontender. Abdomen: Soft and nontender. No organomegaly. Back: ROM normal. Skin: Medium area of cellulitis with tenderness, erythema and warmth to right arm. Heavy purulent drainage present (from her small right antecubital incision that was performed yesterday). Neuro, Vascular and Tendons: Sensation intact. No tendon injury. No vascular compromise. Neuro: No motor deficit. No sensory deficit. PROGRESS AND PROCEDURES Incision & Drainage of Abscess: Time-out completed immediately before the procedure. The abscess is located in the right arm (in the antecubital fossa). The risks of the procedure, benefits and alternatives were explained. Consent was obtained. Anesthesia provided using 2% lidocaine no epi. Skin cleansed with Betadine. The abscess was incised with a #11 surgical blade. A large amount of pus was drained. Cavity was irrigated with saline and packed with gauze. A dressing was applied. ( large amount of pus was noted to be coming from the incision site performed yesterday. I removed a small amount of packing but a large amount of purulent material Draining. Therefore, I explained to the patient that we need to extend the size of the wound and to make it a stellate incision She provided consent for this and I incised and drained the wound and got a large amount of purulent material.). Course of Care: Patient is stable. Patient/family counseled. Old medical records reviewed. Disposition: Discharged. Condition: stable. CLINICAL IMPRESSION Single deep healing abscess to the right upper extremity with incision and drainage. INSTRUCTIONS Protect wound and keep wound area clean. Change dressing twice daily. Warnings: COMPLICATIONS: Complications from this condition include: possible infection. Future problems may include infection, scarring and pain. INFECTION: Watch for signs of infection (increasing heat and redness, pus-like drainage, swelling, or increased pain). Return or see your doctor if these signs occur. It is important to follow up with a physician for further evaluation and treatment. GENERAL WARNINGS: Return or contact your physician immediately if your condition worsens or changes unexpectedly, if not improving as expected, or if other problems arise. Your Current Medications: CONTINUE TAKING THE FOLLOWING MEDICATIONS: Bactrim Oral. Clindamycin HCl Oral. OxyCODONE HCl Oral. Follow-up: Return to the emergency department tomorrow for wound check. Understanding of the discharge instructions verbalized by patient. (Electronically signed by Shivam Santamaria MD 07/11/2016 23:35)
--- NOTE | 2016-07-10 19:48 | ED NURSING NOTES ---
Clinical Report - Nurses [facility] [address] [place] [address] 07/10/2016 17:31 Patient: SUSAN LOPEZ TRIAGE Triage time 17:41. Acuity: LEVEL 5. Chief Complaint: abcess drain removal. 17:49 07/10/16. Alert. No acute distress. SEPSIS SCREEN: Sepsis Screen. Negative (no infection suspected/documented). --17:49 Juliana Al R.N. 17:41 07/10/16. HR: 85. RR: 16. O2 saturation: 99%. Temp: 98.4 F. Pain level now: 02/20. --17:49 Juliana Al R.N. 17:41 late entry -. --17:57 Juliana Al R.N. 17:55 07/10/16. BP: 102/64. --17:57 Juliana Al R.N. 17:58 07/10/16. --17:58 Juliana Al R.N. Weight: 99.7 kg stated. Height/Length: 71 inches Per Patient. BMI: 30.7. --17:53 Juliana Al R.N. Medications Bactrim Oral. --17:50 Juliana Al R.N. Clindamycin HCl Oral. --17:50 Juliana Al R.N. OxyCODONE HCl Oral. --17:51 Juliana Al R.N. The following entry was struck by Juliana Al R.N., 17:50 (07/10/16) Reason - wrong value. <<STRICKEN ENTRY-- None. --17:45 Juliana Al R.N. --END STRIKE>>. Allergies No Known Drug Allergy. --17:45 Juliana Al R.N. History Historian: patient. It is described as painful. ( pt reports she had an abscess drained yesterday and was told to return today for drain removal.). 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 PAST MEDICAL HX: Immunizations: up-to-date. Last normal menstrual period- Jun 28 2016. Denies current . SOCIAL HX: Heavy tobacco smoker- 1 pack per day. History of drug use. (pt reports past heroin use (8 days ago)). No alcohol use. ABUSE ASSESSMENT: No report of abuse. FALL RISK ASSESSMENT: Fall risk assessment completed. No fall risk identified. NUTRITIONAL RISK ASSESSMENT: The nutritional risk assessment revealed no deficiencies. FUNCTIONAL ASSESSMENT: Functional assessment: no impairments noted. LEARNING NEEDS ASSESSMENT: The learning needs assessment revealed no barriers. SKIN INTEGRITY ASSESSMENT: Skin integrity risk assessment completed. No skin integrity risk identified. --17:49 Juliana Al R.N. Location - right forearm. --17:58 Juilana Al R.N. PROBLEMS: Lifestyle / Substance Problems. Abscess. --17:46 Juliana Al R.N. ADDITIONAL SURGERIES: Tonsillectomy. --17:46 Juliana Al R.N. Interventions ID band on patient. To treatment room. --17:49 Juliana Al R.N. PHYSICAL ASSESSMENT 17:52 07/10/16. SKIN: Skin is warm and dry. Bloody drainage (bloody drainage from yesterday). --17:52 Juliana Al R.N. NURSING PROGRESS NOTES 17:53 07/10/16. Two patient identifiers checked. Call light placed in reach. Bed placed in lowest position. Brakes of bed on. Patient ready for evaluation- chart flagged and notification provided. --17:53 Juliana Al R.N. 19:02 07/10/16. ( I and D set up). --19:02 Andrew Jiang R.N. 19:06 07/10/16. Care transferred and report received (from ARIEL Andrews). --19:06 Yesica Burciaga R.N. 19:25 07/10/16. I & D: Incision and Drainage of abscess performed by ED physician. Assisted by one nurse. The abscess is located on the (right AC fossa). Preparation: Incision and Drainage tray set up with 2% lidocaine. Procedure: skin cleansed with Betadine; a large amount of pus was drained. Cavity was irrigated with saline and packed with gauze. A dressing was applied. Post-procedure: she was stable, no complications, bleeding controlled and dressing intact. --19:49 Yesica Burciaga R.N. DISPOSITION / DISCHARGE 20:05 07/10/16. Condition at departure: improved and stable. The goals identified in the patient's plan of care were met. No learning barriers present. Reviewed medication(s) (continue taking abx). Reviewed referrals (return to ED tomorrow evening for wound check). Patient verbalized understanding. Written instructions provided in [place]. The patient was discharged home and unaccompanied at time of discharge. She left the Emergency Department ambulatory and via private vehicle. Patient driving. FALL RISK ASSESSMENT: Fall risk assessment completed. No fall risk identified. --20:05 Yesica Burciaga R.N. 17:55 07/10/16. BP: 102/64. 17:41 07/10/16. HR: 85. RR: 16. O2 saturation: 99%. Temp: 98.4 F. Pain level now: 02/20. --20:05 Yesica Burciaga R.N. Departure time: 20:05 Jul 10 2016. --20:05 Yesica Burciaga R.N. Locked/Released at 07/10/2016 20:05 by Yesica Burciaga R.N.
--- NOTE | 2016-07-11 23:36 | ED MAR SUMMARY ---
..... Medication Administration Record [facility] [address], [place] [id number] Patient: SUSAN LOPEZ Visit ID: [id number] 26y, F Weight: 99.7 kg Height/Length: 71 in BMI: 30.7 ALLERGIES: No Known Drug Allergy
--- NOTE | 2016-07-11 23:36 | ED MAR SUMMARY ---
..... Medication Administration Record [facility] [address] [id number] Patient: SUSAN LOPEZ Visit ID: [id number] 26y, F Weight: 99.7 kg Height/Length: 71 in BMI: 30.7 ALLERGIES: No Known Drug Allergy
--- NOTE | 2016-07-11 23:36 | ED DISCHARGE INSTRUCTIONS ---
Patient: SUSAN LOPEZ General Instructions [facility] VisitID: [id number] [place] [address] 26y, F Registration Date/Time: 07/10/2016 Single deep healing abscess to the right upper extremity with incision and drainage. INSTRUCTIONS Protect wound and keep wound area clean. Change dressing twice daily. Warnings: COMPLICATIONS: Complications from this condition include: possible infection. Future problems may include infection, scarring and pain. INFECTION: Watch for signs of infection (increasing heat and redness, pus-like drainage, swelling, or increased pain). Return or see your doctor if these signs occur. It is important to follow up with a physician for further evaluation and treatment. GENERAL WARNINGS: Return or contact your physician immediately if your condition worsens or changes unexpectedly, if not improving as expected, or if other problems arise. Your Current Medications: CONTINUE TAKING THE FOLLOWING MEDICATIONS: Bactrim Oral. Clindamycin HCl Oral. OxyCODONE HCl Oral. Follow-up: Return to the emergency department tomorrow for wound check. Understanding of the discharge instructions verbalized by patient. ADDITIONAL INFORMATION Abscess [Incision & Drainage] An abscess (sometimes called a boil) occurs when bacteria get trapped under the skin and begin to grow. Pus forms inside the abscess as the body responds to the bacteria. An abscess can occur with an insect bite, ingrown hair, blocked oil gland, pimple, cyst, or puncture wound. Treatment of your abscess has required an incision to drain the pus. If the abscess pocket was large, a gauze packing may have been inserted. This will need to be removed and possibly replaced on your next visit. Antibiotics are not required in the treatment of a simple abscess, unless the infection is spreading into the skin around the wound (known as cellulitis). Healing of the wound will take about one to two weeks depending on the size of the abscess. Healthy tissue will grow from the bottom and sides of the opening until it seals over. Home Care: The wound may drain for the first two days. Cover the wound with a clean dry dressing. If the dressing becomes soaked with blood or pus, change it. If a gauze packing was placed inside the abscess cavity, you may be advised to remove it yourself. You may do this in the shower. Once the packing is removed, you should wash the area in the shower or bath 3 to 4 times a day, until the skin opening has closed. If you were prescribed antibiotics, take them as directed until they are all gone. You may use acetaminophen (Tylenol) or ibuprofen (Motrin, Advil) to control pain, unless another pain medicine was prescribed. [ NOTE: If you have liver disease or ever had a stomach ulcer, talk with your doctor before using these medicines.] Follow Up with your doctor as advised by our staff. If a gauze packing was inserted in your wound, it should be removed in 1-2 days. Check your wound every day for the signs of worsening infection listed below. Get Prompt Medical Attention if any of the following occur: Increasing redness or swelling Red streaks in the skin leading away from the wound Increasing local pain or swelling Continued pus draining from the wound two days after treatment Fever of 100.4F (38C) or higher, or as directed by your healthcare provider Bandage Change If the bandage becomes wet or dirty, replace it. Otherwise, leave it in place for the first 24 hours. Then once a day: After removing the bandage, wash the area with soap and water. Use a wet cotton swab to loosen and remove any blood or crust that forms on the wound. After cleaning, apply a thin layer of antibiotic ointment or cream. Reapply the bandage. You may shower as usual after the first 24 hours. If the bandage is on an arm or leg, cover it with a plastic bag rubber banded at both ends before showering. No tub baths or swimming until the bandage is removed and the wound healed (at least 7 days). You have been given the following additional information: Abscess, Incision And Drainage Dressing Change (Electronically signed by Shivam Santamaria MD 07/11/2016 23:35)
--- NOTE | 2016-07-11 23:36 | ED MED RECONCILIATION SUMMARY ---
Patient: SUSAN LOPEZ Medication Reconciliation Report [facility] VisitID: [id number] [address] [place] [address] 26y, F Registration Date/Time: 07/10/2016 Weight: 99.7 kg Height/Length: 71 in. BMI: 30.7 ALLERGIES: No Known Drug Allergy The patient's Home Medications are listed below: CONTINUE TAKING THE FOLLOWING MEDICATIONS: Bactrim Oral Clindamycin HCl Oral OxyCODONE HCl Oral The source(s) of the original Home Medication information: Not obtained. The following Medications were given to the patient in the Emergency Department: None. The following Medications were prescribed to the patient: None.
--- NOTE | 2016-07-11 23:36 | ED MED RECONCILIATION SUMMARY ---
Patient: SUSAN LOPEZ Medication Reconciliation Report [facility] VisitID: [id number] [address] [place] [address] 26y, F Registration Date/Time: 07/10/2016 Weight: 99.7 kg Height/Length: 71 in. BMI: 30.7 ALLERGIES: No Known Drug Allergy The patient's Home Medications are listed below: CONTINUE TAKING THE FOLLOWING MEDICATIONS: Bactrim Oral Clindamycin HCl Oral OxyCODONE HCl Oral The source(s) of the original Home Medication information: Not obtained. The following Medications were given to the patient in the Emergency Department: None. The following Medications were prescribed to the patient: None.
== END ==
LOC: ED SRH 17:31
DX: L02.413 Cutaneous abscess of right upper limb (principal); F17.210 Nicotine dependence, cigarettes, uncomplicated

== ENCOUNTER 2016-07-13 21:17 | Emergency (ER) | payer SELFPAY ==
--- NOTE | 2016-07-13 22:17 | ED NURSING NOTES ---
Clinical Report - Nurses [facility] [address] [place] [address] 07/13/2016 21:17 Patient: SUSAN LOPEZ TRIAGE Triage time 21:37. Acuity: LEVEL 4. Chief Complaint: SKIN RASH. ( Pt is having 10/10 pain in the right arm with no signs of distress and is having a conversation with her sister laughing.). --21:45 Philip Ashley R.N. 21:37 07/13/16. BP: 112/65. HR: 74. RR: 15. O2 saturation: 100%. Temp: 97.6 F. Pain level now 10/10. --21:45 Philip Ashley R.N. Weight: 99.7 kg stated. Height/Length: 71 inches Per Patient. BMI: 30.7. --21:44 Philip Ashley R.N. Medications Bactrim Oral. Clindamycin HCl Oral. OxyCODONE HCl Oral. --21:43 Philip Ashley R.N. Medication/allergy information source: the patient. --21:45 Philip Ashley R.N. Allergies No Known Drug Allergy. --21:43 Philip Ashley R.N. History Arrived by private vehicle. Historian: patient. Accompanied by family. ( Pt was seen here for the abcess on the right arm.). Reported as located on the right forearm. ( Pt has been taking antibiotics. Pt has a dressing on the right arm. The swelling is down. Pt is here again due to the pain.). 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 PAST MEDICAL HX: Immunizations: up-to-date. SOCIAL HX: Heavy tobacco smoker (cigarette)- less than 1 pack per day. Occasional alcohol use; consumes beer occasionally. History of IV drug use: heroin. (2 weeks off heroin). --21:45 Philip Ashley R.N. ( Pt was suppose to follow up, but did not have a ride here, but is here now.). --21:47 Philip Ashley R.N. PROBLEMS: Healing Abscess. Lifestyle / Substance Problems. Abscess. --21:43 Philip Ashley R.N. Interventions ID band on patient. To treatment room. --21:45 Philip Ashley R.N. PHYSICAL ASSESSMENT Ambulatory to room. GENERAL / NEURO / PSYCH: Alert. The patient does not appear to be in acute distress. Oriented X 4. HEENT: Mucous membranes are pink. RESPIRATORY: Respirations not labored. CVS: Capillary refill less than 2 seconds. Pulses within normal limits. GI / : Abdomen nontender. SKIN: Skin is warm and dry. --22:01 Anisha Pettit R.N. NURSING PROGRESS NOTES Patient gowned. Head of bed elevated. Two patient identifiers checked. Call light placed in reach. Side rails up. Bed placed in lowest position. Brakes of bed on. --22: Anisha Pettit R.N. 22:01 07/13/16. BP: 110/67. HR: 90. O2 saturation: 99%. Temp: 97.7 F. --22:08 Anisha Pettit R.N. Applied clean bulky dressing consisting of 4x4 gauze. Secured with tape. --22:21 Mode Garcia. DISPOSITION / DISCHARGE Departure time: 22:44. Condition at departure: improved. ( pt has a dressing on the right forearm with no drainage, dry and intact.). No learning barriers present. Discharge instructions provided and reviewed with the patient. Work note given (2 days). Patient verbalized understanding. Written instructions provided in [place]. The patient was discharged by the physician. She was discharged home and accompanied by family. She left the Emergency Department ambulatory and via private vehicle. Family member driving. --22:45 Philip Ashley R.N. 22:42 07/13/16. BP: 116/62. HR: 69. RR: 16. O2 saturation: 100%. Pain level now 5/10. --22:45 Philip Ashley R.N. Locked/Released at 07/13/2016 22:45 by Philip Ashley R.N.
--- NOTE | 2016-07-13 22:17 | ED NURSING NOTES ---
Clinical Report - Nurses [facility] [address] [place] [address] 07/13/2016 21:17 Patient: SUSAN LOPEZ TRIAGE Triage time 21:37. Acuity: LEVEL 4. Chief Complaint: SKIN RASH. ( Pt is having 10/10 pain in the right arm with no signs of distress and is having a conversation with her sister laughing.). --21:45 Philip Ashley R.N. 21:37 07/13/16. BP: 112/65. HR: 74. RR: 15. O2 saturation: 100%. Temp: 97.6 F. Pain level now 10/10. --21:45 Philip Ashley R.N. Weight: 99.7 kg stated. Height/Length: 71 inches Per Patient. BMI: 30.7. --21:44 Philip Ashley R.N. Medications Bactrim Oral. Clindamycin HCl Oral. OxyCODONE HCl Oral. --21:43 Philip Ashley R.N. Medication/allergy information source: the patient. --21:45 Philip Ashley R.N. Allergies No Known Drug Allergy. --21:43 Philip Ashley R.N. History Arrived by private vehicle. Historian: patient. Accompanied by family. ( Pt was seen here for the abcess on the right arm.). Reported as located on the right forearm. ( Pt has been taking antibiotics. Pt has a dressing on the right arm. The swelling is down. Pt is here again due to the pain.). 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 PAST MEDICAL HX: Immunizations: up-to-date. SOCIAL HX: Heavy tobacco smoker (cigarette)- less than 1 pack per day. Occasional alcohol use; consumes beer occasionally. History of IV drug use: heroin. (2 weeks off heroin). --21:45 Philip Ashley R.N. ( Pt was suppose to follow up, but did not have a ride here, but is here now.). --21:47 Philip Ashley R.N. PROBLEMS: Healing Abscess. Lifestyle / Substance Problems. Abscess. --21:43 Philip Ashley R.N. Interventions ID band on patient. To treatment room. --21:45 hPilip Ashley R.N. PHYSICAL ASSESSMENT Ambulatory to room. GENERAL / NEURO / PSYCH: Alert. The patient does not appear to be in acute distress. Oriented X 4. HEENT: Mucous membranes are pink. RESPIRATORY: Respirations not labored. CVS: Capillary refill less than 2 seconds. Pulses within normal limits. GI / : Abdomen nontender. SKIN: Skin is warm and dry. --22:01 Anisha Pettit R.N. NURSING PROGRESS NOTES Patient gowned. Head of bed elevated. Two patient identifiers checked. Call light placed in reach. Side rails up. Bed placed in lowest position. Brakes of bed on. --22: Anisha Pettit R.N. 22:01 07/13/16. BP: 110/67. HR: 90. O2 saturation: 99%. Temp: 97.7 F. --22:08 Anisha Pettit R.N. Applied clean bulky dressing consisting of 4x4 gauze. Secured with tape. --22:21 Mode Garcia. DISPOSITION / DISCHARGE Departure time: 22:44. Condition at departure: improved. ( pt has a dressing on the right forearm with no drainage, dry and intact.). No learning barriers present. Discharge instructions provided and reviewed with the patient. Work note given (2 days). Patient verbalized understanding. Written instructions provided in [place]. The patient was discharged by the physician. She was discharged home and accompanied by family. She left the Emergency Department ambulatory and via private vehicle. Family member driving. --22:45 Philip Ashley R.N. 22:42 07/13/16. BP: 116/62. HR: 69. RR: 16. O2 saturation: 100%. Pain level now 5/10. --22:45 Philip Ashley R.N. Locked/Released at 07/13/2016 22:45 by Philip Ashley R.N.
--- NOTE | 2016-07-13 22:17 | ED CLINICAL REPORT ---
Clinical Report - Physicians/Mid Levels [facility] [address] [place] [address] 07/13/2016 21:17 Patient: SUSAN LOPEZ Time Seen: 21:59 Jul 13 2016. Arrived- By private vehicle. Historian- patient. HISTORY OF PRESENT ILLNESS Chief Complaint: BOIL. This started 5 days ago and is still present and worsening. (1 days). It is described as painful. It has been located on the right arm. A cause has been identified. 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 She had incision and drainage performed 5 days ago and was prescribed clindamycin and TMP SMX. She had this packed several times and was supposed to return for reevaluation 2 days ago. However, she said she couldn't get a ride. She says today the pain seems to be a little bit worse. It is no longer draining. She denies fever, chills, nausea, vomiting or headache.). Recent medical care: The patient was seen recently at this facility. REVIEW OF SYSTEMS No fever, chills, cough, difficulty breathing or enlarged lymph nodes. No headache, abdominal pain, nausea, diarrhea or joint pain. No vomiting. All systems otherwise negative, except as recorded above. PAST HISTORY See nurses notes. No history of heart disease, lung disease or diabetes mellitus. SOCIAL HISTORY Smoker- current status unknown. Alcohol use. History of drug use. ADDITIONAL NOTES The nursing notes have been reviewed. PHYSICAL EXAM Appearance: Alert. Oriented X3. Appears to be in pain. Eyes: Pupils equal, round and reactive to light. ENT: Nose normal. Pharynx normal. Neck: Neck supple. Respiratory: No respiratory distress. Skin: Normal skin color. Normal skin turgor. Single large abscess with drainage. Rash present on the right arm. (Large draining abscess in the right antecubital space. Packing removed and approximately 10 cc of yellow greenishpurulent discharge expressed.). Extremities: No upper extremity edema. Neuro: Oriented X 3. No motor deficit. No sensory deficit. PROGRESS AND PROCEDURES Course of Care: Patient has had some worsening pain today but I think it's because of the increasing collection of pus in her abscess. I removed the packing and expressed a large amount of purulent discharge. She is feeling better. She remains without systemic symptoms and is on the correct antibiotics. I don'tthink she needs to be repacked as at this point in time it was simply holding the purulent discharge inside of the abscess. We'll lightly packed it and let it drain on its own. Start warm soapy soaks. Continue with the antibiotics for the next 5 days. Return here if any worsening or failure to improve in the next 48 hours. Disposition: Discharged in good and improved condition. CLINICAL IMPRESSION Deep abscess to the right upper extremity. INSTRUCTIONS Protect wound and keep wound area clean. Change dressing twice daily. Soak in warm soapy water. Rest at home. Do not work for two days. No dietary restrictions. Warnings: GENERAL WARNINGS: Return or contact your physician immediately if your condition worsens or changes unexpectedly, if not improving as expected, or if other problems arise. Specifically return if vomiting, breathing difficulty or fever worsens or fails to resolve. Follow-up: Follow up with your doctor in three days even if well. Understanding of the discharge instructions verbalized by patient. (Electronically signed by Janak Murdock, 07/13/2016 23:58)
--- NOTE | 2016-07-13 23:58 | ED MED RECONCILIATION SUMMARY ---
Patient: SUSAN LOPEZ Medication Reconciliation Report [facility] VisitID: [id number] [address] [place] [address] 26y, F Registration Date/Time: 07/13/2016 Weight: 99.7 kg Height/Length: 71 in. BMI: 30.7 ALLERGIES: No Known Drug Allergy The patient's Home Medications are listed below: THE FOLLOWING MEDICATIONS NEED TO BE RECONCILED: Bactrim Oral Clindamycin HCl Oral OxyCODONE HCl Oral The source(s) of the original Home Medication information: patient The following Medications were given to the patient in the Emergency Department: None. The following Medications were prescribed to the patient: None.
--- NOTE | 2016-07-13 23:58 | ED MAR SUMMARY ---
..... Medication Administration Record [facility] [address], [place] [id number] Patient: SUSAN LOPEZ Visit ID: [id number] 26y, F Weight: 99.7 kg Height/Length: 71 in BMI: 30.7 ALLERGIES: No Known Drug Allergy
--- NOTE | 2016-07-13 23:58 | ED MAR SUMMARY ---
..... Medication Administration Record [facility] [address], [place] [id number] Patient: SUSAN LOPEZ Visit ID: [id number] 26y, F Weight: 99.7 kg Height/Length: 71 in BMI: 30.7 ALLERGIES: No Known Drug Allergy
--- NOTE | 2016-07-13 23:58 | ED MED RECONCILIATION SUMMARY ---
Patient: SUSAN LOPEZ Medication Reconciliation Report [facility] VisitID: [id number] [address] [place] [address] 26y, F Registration Date/Time: 07/13/2016 Weight: 99.7 kg Height/Length: 71 in. BMI: 30.7 ALLERGIES: No Known Drug Allergy The patient's Home Medications are listed below: THE FOLLOWING MEDICATIONS NEED TO BE RECONCILED: Bactrim Oral Clindamycin HCl Oral OxyCODONE HCl Oral The source(s) of the original Home Medication information: patient The following Medications were given to the patient in the Emergency Department: None. The following Medications were prescribed to the patient: None.
--- NOTE | 2016-07-13 23:58 | ED DISCHARGE INSTRUCTIONS ---
Patient: SUSAN LOPEZ General Instructions [facility] VisitID: [id number] [place] [address] 26y, F Registration Date/Time: 07/13/2016 Deep abscess to the right upper extremity. INSTRUCTIONS Protect wound and keep wound area clean. Change dressing twice daily. Soak in warm soapy water. Rest at home. Do not work for two days. No dietary restrictions. Warnings: GENERAL WARNINGS: Return or contact your physician immediately if your condition worsens or changes unexpectedly, if not improving as expected, or if other problems arise. Specifically return if vomiting, breathing difficulty or fever worsens or fails to resolve. Follow-up: Follow up with your doctor in three days even if well. Understanding of the discharge instructions verbalized by patient. ADDITIONAL INFORMATION Abscess [Incision & Drainage] An abscess (sometimes called a boil) occurs when bacteria get trapped under the skin and begin to grow. Pus forms inside the abscess as the body responds to the bacteria. An abscess can occur with an insect bite, ingrown hair, blocked oil gland, pimple, cyst, or puncture wound. Treatment of your abscess has required an incision to drain the pus. If the abscess pocket was large, a gauze packing may have been inserted. This will need to be removed and possibly replaced on your next visit. Antibiotics are not required in the treatment of a simple abscess, unless the infection is spreading into the skin around the wound (known as cellulitis). Healing of the wound will take about one to two weeks depending on the size of the abscess. Healthy tissue will grow from the bottom and sides of the opening until it seals over. Home Care: The wound may drain for the first two days. Cover the wound with a clean dry dressing. If the dressing becomes soaked with blood or pus, change it. If a gauze packing was placed inside the abscess cavity, you may be advised to remove it yourself. You may do this in the shower. Once the packing is removed, you should wash the area in the shower or bath 3 to 4 times a day, until the skin opening has closed. If you were prescribed antibiotics, take them as directed until they are all gone. You may use acetaminophen (Tylenol) or ibuprofen (Motrin, Advil) to control pain, unless another pain medicine was prescribed. [ NOTE: If you have liver disease or ever had a stomach ulcer, talk with your doctor before using these medicines.] Follow Up with your doctor as advised by our staff. If a gauze packing was inserted in your wound, it should be removed in 1-2 days. Check your wound every day for the signs of worsening infection listed below. Get Prompt Medical Attention if any of the following occur: Increasing redness or swelling Red streaks in the skin leading away from the wound Increasing local pain or swelling Continued pus draining from the wound two days after treatment Fever of 100.4F (38C) or higher, or as directed by your healthcare provider Bandage Change If the bandage becomes wet or dirty, replace it. Otherwise, leave it in place for the first 24 hours. Then once a day: After removing the bandage, wash the area with soap and water. Use a wet cotton swab to loosen and remove any blood or crust that forms on the wound. After cleaning, apply a thin layer of antibiotic ointment or cream. Reapply the bandage. You may shower as usual after the first 24 hours. If the bandage is on an arm or leg, cover it with a plastic bag rubber banded at both ends before showering. No tub baths or swimming until the bandage is removed and the wound healed (at least 7 days). You have been given the following additional information: Abscess, Incision And Drainage Dressing Change Rest at home. Do not work for two days. (Electronically signed by Janak Murdock, 07/13/2016 23:58)
== END 2016-07-13 22:44 | disposition home or self-care (01) ==
LOC: ED SRH 21:17
DX: L02.413 Cutaneous abscess of right upper limb (principal); F17.210 Nicotine dependence, cigarettes, uncomplicated